=== PATIENT | female | born 1960 | race Caucasian/White ===

== ENCOUNTER → 2018-08-08 13:15 | Outpatient (CLI) | payer OTHER, SELFPAY ==
--- NOTE | 2018-08-08 | DI.MG.S_ITS ---
BILATERAL DIGITAL SCREENING MAMMOGRAM 3D/2D WITH CAD: 08/08/2018 CLINICAL: Routine screening. Comparison is made to exams dated: 12/27/2015 mammogram, 01/15/2014 mammogram, and 11/01/2008 mammogram - [facility]. There are scattered fibroglandular elements in both breasts. Current study was also evaluated with a Computer Aided Detection (CAD) system. No significant masses, calcifications, or other findings are seen in either breast. There has been no significant interval change. IMPRESSION: NEGATIVE There is no mammographic evidence of malignancy. A 1 year screening mammogram is recommended. This exam was interpreted at Station ID: [id number]. NOTE: For mammograms, a report in lay terms will be sent to the patient. Approximately 15% of breast malignancies will not be visualized mammographically. In the management of a palpable breast mass, a negative mammogram must not discourage biopsy of a clinically suspicious lesion. Electronically Signed By: Kimo [email or web address]:08/08/2018 16:38:47 letter sent: Normal Exam ACR BI-RADS Category 1: Negative [id number]
== END ==
PROVIDERS: PCP Family Medicine; Visit Provider Family Medicine
DX: Z12.31 Encounter for screening mammogram for malignant neoplasm of breast (principal); Z13.820 Encounter for screening for osteoporosis; M85.852 Other specified disorders of bone density and structure, left thigh; Z78.0 Asymptomatic menopausal state; E07.9 Disorder of thyroid, unspecified
CPT/HCPCS: 77063; 77067; 77080

== ENCOUNTER → 2023-12-24 06:56 | Outpatient (CLI) | payer OTHER, SELFPAY ==
--- NOTE | 2023-12-24 06:57 | DI.US.S_ITS ---
PROCEDURE: US ABDOMEN LIMITED INDICATIONS: HISTORY OF ENLARGED LIVER TECHNIQUE: Real-time focused scanning was performed of the abdomen, with image documentation. COMPARISON: Ultrasound abdomen from 04/07/2016 could not be retrieved due to PACS error FINDINGS: The liver is within normal limits and measures 13.2 cm in the craniocaudal dimension. There is no intrahepatic or extrahepatic biliary ductal dilatation. The common bile duct measures 5 mm in diameter. The gallbladder is within normal limits. No cholelithiasis, pericholecystic fluid. Negative sonographic Armando sign. Suboptimal evaluation of the pancreas due to overlying bowel gas. IMPRESSION: No hepatomegaly. No cholelithiasis or acute cholecystitis. Dictated by: Anibal Lange M.D. on 12/24/2023 at 21:54 Approved by: Anibal Lange M.D. on 12/24/2023 at 21:55
[2023-12-24 08:14] LABS: Add Manual Diff / Slide Review NO; Basophils Absolute Auto 0 /uL (0-100); Basophils Percent Auto 0.7 % (0-2); Eosinophils Absolute Auto 0 /uL (0-450); Hematocrit 38.1 % (36-46); Hemoglobin 12.9 g/dL (12.0-16.0); Lymphocytes Absolute Auto 1600 /uL (1100-4500); Lymphocytes Percent Auto 38.7 % (25-40); Mean Corpuscular HGB Conc 33.9 % (30-36); Mean Corpuscular Hemoglobin 31.3 PG (26-34); Mean Corpuscular Volume 92.3 fL (80-100); Monocytes Absolute Auto 300 /uL (0-900); Monocytes Percent Auto 6.9 % (3-14); Neutrophils Absolute Auto 2200 /uL (1500-7000); Neutrophils Percent Auto 52.7 % (50-75); Platelet Count 223 X10^3/uL (150-400); Red Blood Cell Count 4.13 X10^6/uL (4.0-5.2); Red Cell Distribution Width 12.9 % (11.6-14.8); White Blood Cell Count 4.2 X10^3/uL (4.5-11.0)
[2023-12-24 08:55] LABS: Alanine Aminotransferase 21 IU/L (<35); Albumin 3.9 g/dL (3.5-5.0); Albumin Globulin Ratio 1.5 (1.0-2.8); Alkaline Phosphatase 67 U/L (38-126); Aspartate Aminotransferase 26 IU/L (14-36); Bilirubin Total 0.5 mg/dL (0.2-1.3); Blood Urea Nitrogen 20 mg/dL (7-17); Calcium 9.4 mg/dL (8.4-10.2); Carbon Dioxide 28 mmol/L (22-32); Chloride 104 mmol/L (98-107); Cholesterol 176 mg/dL (140-199); Estimated Glomerular Filt Rate > 60 mL/min (>60); Globulin 2.6 g/dL (1.7-4.1); Glucose 84 mg/dL (80-110); HDL Cholesterol 62 mg/dL (40-60); HEMOLYSIS < 15 (0-50); LDL Cholesterol Calculated 97 mg/dL (<100); Potassium 4.2 mmol/L (3.4-5.1); Sodium 137 mmol/L (137-145); Total Protein 6.5 g/dL (6.3-8.2); Triglycerides 84 mg/dL (35-150)
[2023-12-24 09:11] LABS: Free T3, Triiodothyronine Free 5.54 pg/mL (2.77-5.27); Free T4, Direct Thyroxine 0.68 ng/dL (0.78-2.19)
[2023-12-24 09:25] LABS: TSH w/ Reflex to FT4 3.54 uIU/mL (0.47-4.68); Thyroid Stimulating Hormone 3.54 uIU/mL (0.47-4.68)
[2023-12-28 19:37] LABS: Estrogen 57 pg/mL (40-244)
== END ==
PROVIDERS: PCP Family Medicine; Referring Provider Family Medicine; Visit Provider Family Medicine
DX: R16.0 Hepatomegaly, not elsewhere classified (principal); E03.9 Hypothyroidism, unspecified; Z13.220 Encounter for screening for lipoid disorders; Z79.890 Hormone replacement therapy
CPT/HCPCS: 36415; 76705; 80053; 80061; 82672; 84144; 84439; 84443; 84481; 84999; 85025

== ENCOUNTER → 2024-03-13 13:22 | Outpatient (CLI) | payer OTHER, SELFPAY ==
[2024-03-13 13:47] LABS: Add Manual Diff / Slide Review NO; Basophils Absolute Auto 0 /uL (0-100); Basophils Percent Auto 0.6 % (0-2); Eosinophils Absolute Auto 100 /uL (0-450); Eosinophils Percent Auto 0.9 % (2-4); Hematocrit 41.8 % (36-46); Hemoglobin 14.2 g/dL (12.0-16.0); Lymphocytes Absolute Auto 2000 /uL (1100-4500); Lymphocytes Percent Auto 32.1 % (25-40); Mean Corpuscular HGB Conc 33.9 % (30-36); Mean Corpuscular Hemoglobin 30.9 PG (26-34); Mean Corpuscular Volume 91.2 fL (80-100); Monocytes Absolute Auto 400 /uL (0-900); Monocytes Percent Auto 7.2 % (3-14); Neutrophils Absolute Auto 3600 /uL (1500-7000); Neutrophils Percent Auto 59.2 % (50-75); Platelet Count 273 X10^3/uL (150-400); Red Blood Cell Count 4.58 X10^6/uL (4.0-5.2); Red Cell Distribution Width 12.8 % (11.6-14.8); White Blood Cell Count 6.1 X10^3/uL (4.5-11.0)
[2024-03-13 14:05] LABS: Blood Urea Nitrogen 21 mg/dL (7-17); Calcium 9.4 mg/dL (8.4-10.2); Carbon Dioxide 26 mmol/L (22-32); Chloride 106 mmol/L (98-107); Estimated Glomerular Filt Rate > 60 mL/min (>60); Glucose 103 mg/dL (80-110); HEMOLYSIS < 15 (0-50); Phosphorous 3.9 mg/dL (2.8-4.1); Potassium 4.2 mmol/L (3.4-5.1); Sodium 138 mmol/L (137-145)
[2024-03-13 14:40] LABS: Thyroid Stimulating Hormone < 0.015 uIU/mL (0.47-4.68)
== END ==
PROVIDERS: PCP Family Medicine; Referring Provider Family Medicine; Visit Provider Family Medicine
DX: E03.9 Hypothyroidism, unspecified (principal); D70.9 Neutropenia, unspecified; R79.9 Abnormal finding of blood chemistry, unspecified
CPT/HCPCS: 36415; 80069; 84443; 85025

== ENCOUNTER → 2024-08-18 10:32 | Outpatient (CLI) | payer OTHER, SELFPAY ==
[2024-08-18 11:50] LABS: Free T3, Triiodothyronine Free 2.85 pg/mL (2.77-5.27)
[2024-08-18 12:03] LABS: TSH w/ Reflex to FT4 3.65 uIU/mL (0.47-4.68)
== END ==
LOC: LAB 10:35
PROVIDERS: PCP Family Medicine; Referring Provider Family Medicine; Visit Provider Family Medicine
DX: E03.9 Hypothyroidism, unspecified (principal)
CPT/HCPCS: 36415; 84443; 84481

== ENCOUNTER → 2024-09-11 08:29 | Outpatient (CLI) | payer OTHER, SELFPAY ==
[2024-09-11 09:40] LABS: Alanine Aminotransferase 22 IU/L (<35); Albumin 4.2 g/dL (3.5-5.0); Albumin Globulin Ratio 1.8 (1.0-2.8); Alkaline Phosphatase 73 U/L (38-126); Aspartate Aminotransferase 28 IU/L (14-36); BUN Creatinine Ratio 16.7 (6-22); Bilirubin Total 0.5 mg/dL (0.2-1.3); Blood Urea Nitrogen 16 mg/dL (7-17); Calcium 9.2 mg/dL (8.4-10.2); Carbon Dioxide 27 mmol/L (22-32); Chloride 103 mmol/L (98-107); Estimated Glomerular Filt Rate > 60 mL/min (>60); Globulin 2.4 g/dL (1.7-4.1); Glucose 73 mg/dL (70-99); HEMOLYSIS < 15 (0-50); Potassium 4.4 mmol/L (3.4-5.1); Sodium 137 mmol/L (137-145); Total Protein 6.6 g/dL (6.3-8.2)
== END ==
PROVIDERS: PCP Family Medicine; Referring Provider Physician Assistant; Visit Provider Physician Assistant
DX: K21.9 Gastro-esophageal reflux disease without esophagitis (principal); K29.80 Duodenitis without bleeding; R10.13 Epigastric pain; R13.10 Dysphagia, unspecified
CPT/HCPCS: 36415; 80053; 83993

== ENCOUNTER → 2024-09-28 09:20 | Outpatient (CLI) | payer OTHER, SELFPAY ==
--- NOTE | 2024-09-28 09:27 | DI.MRI.S_ITS ---
PROCEDURE: MR ENTEROGRAPHY PROTOCOL INDICATIONS: EPIGASTRIC ABDOMINAL PAIN TECHNIQUE: After the ingestion of oral contrast, coronal and axial HASTE, coronal 2-D FLASH in-and [id number] sequences. After the administration of contrast, coronal and axial VIBE or 2-D FLASH with fat saturation sequences acquired through the abdomen and pelvis. Optional diffusion weighted imaging and ADC may be performed. COMPARISON: None. FINDINGS: Image quality: Excellent. Bowel and peritoneum: No abnormal enhancement. No luminal narrowing Lung bases: Unremarkable. Liver: No solid mass. Gallbladder: No gallstones or wall thickening. Biliary ducts: No biliary dilation. No evidence of PSC. Pancreas: No ductal dilation. Spleen: Size is within normal limits. Adrenal Glands: No adrenal nodules. Kidneys and Ureters: No hydronephrosis. No solid mass. No complex renal cystic lesion which requires follow up. Peritoneum: No abnormal intraperitoneal fluid. No free air. Ventral Wall: No hernia. Abdominal Nodes: No retroperitoneal or mesenteric adenopathy by size criteria. Vessels: Aorta and inferior vena cava are normal in size. Pelvis: There is a cystic lesion inferior to the coccyx measuring 1.8 x 1.7 centimeter, with questionable track to the intergluteal cleft (series 8, image 3). Bones: No aggressive osseous abnormality. IMPRESSION: No evidence of active inflammatory bowel disease. Simple appearing cystic lesion inferior to the coccyx, with questionable drainage pathway to the intergluteal cleft. Findings suggested pilonidal cyst no evidence of inflammation. Dictated by: Jay Moise M.D. on 09/28/2024 at 14:29 Approved by: Jay Moise M.D. on 09/28/2024 at 14:33
== END ==
PROVIDERS: PCP Family Medicine; Referring Provider Physician Assistant; Visit Provider Physician Assistant
DX: K21.9 Gastro-esophageal reflux disease without esophagitis (principal); K29.80 Duodenitis without bleeding; R10.13 Epigastric pain; R13.10 Dysphagia, unspecified; M89.9 Disorder of bone, unspecified
CPT/HCPCS: 72197; 74183; A9579

== ENCOUNTER → 2024-10-25 11:55 | Outpatient (CLI) | payer OTHER, SELFPAY | PROVIDERS: PCP Family Medicine; Referring Provider Physician Assistant; Visit Provider Physician Assistant | DX: K21.9 Gastro-esophageal reflux disease without esophagitis (principal); K29.80 Duodenitis without bleeding; R10.13 Epigastric pain; R13.10 Dysphagia, unspecified | CPT/HCPCS: 83993 ==

== ENCOUNTER → 2024-10-31 15:15 | Outpatient (CLI) | payer OTHER, SELFPAY | PROVIDERS: PCP Family Medicine; Visit Provider Obstetrics & Gynecology | DX: N89.8 Other specified noninflammatory disorders of vagina (principal); R31.9 Hematuria, unspecified | CPT/HCPCS: 87086 ==

== ENCOUNTER → 2025-01-08 15:47 | Outpatient (CLI) | payer OTHER, SELFPAY | PROVIDERS: PCP Family Medicine; Referring Provider Obstetrics & Gynecology; Visit Provider Obstetrics & Gynecology | DX: R68.82 Decreased libido (principal) | CPT/HCPCS: 36415; 84402; 84403 ==

== ENCOUNTER → 2025-02-07 10:46 | Outpatient (CLI) | payer OTHER, SELFPAY ==
--- NOTE | 2025-02-07 10:49 | DI.RAD.S_ITS ---
PROCEDURE: XR DEXA AXIAL SKELETON
[2025-02-07 13:22] LABS: Thyroid Stimulating Hormone 2.77 uIU/mL (0.47-4.68)
== END ==
LOC: RAD 10:48
PROVIDERS: PCP Family Medicine; Referring Provider Family Medicine; Visit Provider Family Medicine
DX: M81.0 Age-related osteoporosis without current pathological fracture (principal); Z78.0 Asymptomatic menopausal state; E03.9 Hypothyroidism, unspecified
CPT/HCPCS: 36415; 77080; 84443

== ENCOUNTER → 2025-02-09 11:14 | Outpatient (CLI) | payer OTHER, SELFPAY ==
[2025-02-12 12:10] LABS: Trichomoas vaginalis Negative (Negative)
== END ==
LOC: LAB 11:15
PROVIDERS: PCP Family Medicine; Visit Provider Obstetrics & Gynecology
DX: N89.8 Other specified noninflammatory disorders of vagina (principal)
CPT/HCPCS: 81514